=== PATIENT | male | born 1940 | race Asian ===

== ENCOUNTER → 2016-11-26 | Outpatient (CLI) | payer OTHER ==
[~2016-11-26] MED LIST: AMARYL4 MG PO; ASPIR 8181 MG PO; ATORVASTATIN CA40 MG PO; FLOMAX0.4 MG PO; HYDROCODONE-AP1 EAC6 PO; KEFLEX250 MG PO; METFORMIN HCL500 MG PO; NEURONTIN 300300 M1 PO; PERCOCET PO; PROSCAR 5MG TABL5 MG PO; ZANTAC 150MG T150 MG PO; ZESTRIL40 MG PO
== END ==
LOC: ULTRA 08:24
DX: N13.30 Unspecified hydronephrosis (principal); N28.89 Other specified disorders of kidney and ureter

== ENCOUNTER 2017-01-21 15:03 | Observation (INO) | payer OTHER ==
[~2017-01-21] VITALS: Ht 170.2 cm; Wt 82.1 kg
--- NOTE | ~2017-01-21 | H ---
[facility] [address] [address] HISTORY AND PHYSICAL Name: BRENDA ACEVEDO Room #: 307-[facility]..#: [id number] Admission: 01/21/17 Attend Phys: Mariano Allen MD Discharge: Date of : 38 Report #: [id number] THIS REPORT FOR: //name// CC: Nba Allen CHIEF COMPLAINT: Dizziness and hearing loss. HISTORY OF PRESENT ILLNESS: The patient is a 76-year-old gentleman who was in his usual state of health until on Saturday , he developed sudden loss of hearing in his left ear. He was [place] a local [place] when suddenly he heard a fuzzy noise and ringing in the left ear, which then followed with loss of hearing. Yesterday, then he developed dizziness with trouble walking and some nausea and presented to the emergency room. He said his hearing has still been severely diminished in his left ear since Saturday. PAST MEDICAL HISTORY: Hypertension, diabetes type 2, dyslipidemia, Owens's palsy, he had some illness in 2006, had a PEG tube at that time, which has been remotely removed. PAST SURGICAL HISTORY: He had a lap deonna in 2014. FAMILY HISTORY: Noncontributory. SOCIAL HISTORY: He is , lives with his . No chronic alcohol or tobacco use. ALLERGIES: None. MEDICATIONS: Flomax 0.4 mg, metformin ER 750 mg, Amaryl 4 mg, Zestril 40 mg, Lipitor 40 mg, gabapentin 300 mg b.i.d., Zantac 150 mg b.i.d., and aspirin 81 mg. REVIEW OF SYSTEMS: He still complains of poor balance, the ringing has diminished, he still complains of left-sided hearing loss, otherwise no headache, visual change, sore throat, chest pain, abdominal pain, nausea, vomiting, diarrhea, constipation, dysuria, or syncope. OBJECTIVE: VITAL SIGNS: Temperature 36.7, pulse 71, respirations 18, blood pressure 150/84, and O2 sat 94% on room air. GENERAL: He is awake and alert, in no distress. 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 LUNGS: Clear. HEART: Regular. ABDOMEN: Soft, normoactive bowel sounds. [address] [place] [address] HISTORY AND PHYSICAL Name: BRENDA ACEVEDO Room #: [facility]..#: [id number] Admission: 01/21/17 Attend Phys: Mariano Allen MD Discharge: Date of : 38 Report #: [id number] EXTREMITIES: No edema. NEUROLOGIC: Speech is fluent. He is alert and oriented. Global strength equal bilaterally. LAB REVIEW: Normal. Troponin negative. CT head negative. MRI of the brain is pending. ASSESSMENT: 1. 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 2. Hypertension. 3. Diabetes type 2. PLAN: Symptomatic treatment with meclizine for now. Once he is stable on his feet, he can go home and followup with ENT as an outpatient. I would avoid steroids at this point because of his diabetes. <ELECTRONICALLY SIGNED> By: Mariano Allen MD 01/22/17 1347 1058 1248 Mariano Allen MD /nt
--- NOTE | ~2017-01-21 | EKG ---
[address] [address] ELECTROCARDIOGRAM REPORT Name: BRENDA ACEVEDO Room #: 307-[facility].#: [id number] Admission: 01/21/17 Attend Phys: Mariano Allen MD Discharge: Date of : 38 Report #: [id number] THIS REPORT FOR: //name// [facility] ED Test Date: 2017-01-21 Test Time: 15:22:26 Pat Name: BRENDA ACEVEDO Department: Room: [facility] Gender: M Thoracic Medicine Physician: TAYA : 1940 Requested By: Janell Andrade Order Number: [id number] MD: Geovanny Kinney Measurements Intervals [place] Rate: 68 P: 40 [place]: 179 QRS: 22 QRSD: 129 T: 19 QT: 456 QTc: 486 Interpretive Statements Sinus rhythm Right bundle branch block Compared to ECG 11/25/2014 08:44:45 No significant changes Electronically Signed On 01-21-2017 18:07:45 CDT by Geovanny Kinney [email or web address] <ELECTRONICALLY SIGNED> By: Geovanny Kinney MD 01/21/17 1807 1522 21 Geovanny Kinney MD /BRADY
[2017-01-21 15:10] VITALS: BP 182/87
[2017-01-21] MEDS ORDERED: GLUCOPHAGE XR750 MG PO (15:24)
[2017-01-21] MEDS ORDERED: AMARYL4 MG PO (15:25)
[2017-01-21 15:30] LABS: HEMATOCRIT 48.6 % (42.0-52.0); HEMOGLOBIN 16.3 gm/dL (14.0-18.0); MCH 30.1 pg (26.0-34.0); MCHC 33.6 g/dL (28.0-37.0); MCV 89.7 fL (80.0-100.0); PLATELET COUNT 129 thou/uL (150-400); RBC 5.42 mil/uL (4.50-6.00); RDW 13.9 % (10.5-14.5); WBC 10.4 thou/uL (4.0-11.0)
[2017-01-21 15:31] LABS: MANUAL DIFF YES
[2017-01-21 15:39] LABS: ANION GAP 12 mmol/L (7-16); BUN 15 mg/dL (7-18); CALCIUM 8.7 mg/dL (8.5-10.1); CHLORIDE 103 mmol/L (98-107); CO2 23 mmol/L (21-32); CREATININE 0.9 mg/dL (0.7-1.3); GLUCOSE 269 mg/dL (74-106); POTASSIUM 4.1 mmol/L (3.5-5.1); SODIUM 138 mmol/L (136-145)
[2017-01-21 15:47] LABS: TROPONIN-I < 0.04 ng/mL (<0.04-0.07)
[2017-01-21 15:51] LABS: ABSOLUTE NEUTROPHILS 9.3 thou/uL (1.4-8.2); PLATELET ESTIMATE NORMAL; TOTAL CELL COUNT 100
[2017-01-21 17:33] VITALS: BP 142/69
[2017-01-21 19:19] VITALS: BP 136/77
[2017-01-21] MEDS ORDERED: FINASTERIDE5 MG PO (20:24)
[2017-01-21 23:58] VITALS: BP 147/88
[2017-01-22 03:08] LABS: HEMATOCRIT 47.4 % (42.0-52.0); HEMOGLOBIN 15.9 gm/dL (14.0-18.0); MCH 29.9 pg (26.0-34.0); MCHC 33.6 g/dL (28.0-37.0); MCV 88.9 fL (80.0-100.0); RBC 5.33 mil/uL (4.50-6.00); RDW 13.7 % (10.5-14.5); WBC 8.9 thou/uL (4.0-11.0)
[2017-01-22 03:20] LABS: CALCIUM 9.1 mg/dL (8.5-10.1); CREATININE 0.9 mg/dL (0.7-1.3); POTASSIUM 4.2 mmol/L (3.5-5.1)
[2017-01-22 04:07] VITALS: BP 136/78
[2017-01-22 07:07] VITALS: BP 150/84
[2017-01-22 16:47] VITALS: BP 156/82
[2017-01-22] MEDS ORDERED: ANTIVERT25 MG PO (17:11)
[2017-01-22 17:19] VITALS: BP 156/82
== END 2017-01-22 17:53 | disposition home or self-care (01) ==
LOC: ER 15:03 → EROBS 16:30 → 3N 17:30
PROVIDERS: Emergency Medicine
DX: R42 Dizziness and giddiness (principal); I10 Essential (primary) hypertension; E11.9 Type 2 diabetes mellitus without complications; R11.2 Nausea with vomiting, unspecified

== ENCOUNTER 2017-04-14 17:06 | Emergency (ER) | payer OTHER ==
[~2017-04-14] VITALS: Ht 170.2 cm; Wt 83.5 kg
--- NOTE | ~2017-04-14 | EKG ---
[place] [address] [facility] [place] [address] ELECTROCARDIOGRAM REPORT Name: BRENDA ACEVEDO Room #: [facility]#: [id number] Admission: 04/14/17 Attend Phys: Discharge: 04/14/17 Date of : 38 Report #: [id number] THIS REPORT FOR: //name// [facility] ED Test Date: 2017-04-14 Test Time: 17:55:14 Pat Name: BRENDA ACEVEDO Department: Room: Gender: Convention Planner: [facility] : 1940 Requested By: Rosas Cruz Order Number: [id number] MD: Hector Wright Measurements Intervals [place] Rate: 74 P: 30 [place]: 186 QRS: 10 QRSD: 131 T: 28 QT: 413 QTc: 459 Interpretive Statements Sinus rhythm Right bundle branch block Baseline wander in lead(s) V5 Compared to ECG 01/21/2017 15:22:26 No significant changes Electronically Signed On 04-15-2017 13:48:28 CDT by Hector Wright [email or web address] <ELECTRONICALLY SIGNED> By: Hector Wright MD, [facility] 04/15/17 1348 1755 175 Hector Wright MD, [facility] /EPI
[~2017-04-14 17:06] MED LIST changes: +ANTIVERT25 MG PO; +FINASTERIDE5 MG PO; +GLUCOPHAGE XR750 MG PO
[2017-04-14 18:18] LABS: HEMATOCRIT 45.5 % (42.0-52.0); MCH 29.6 pg (26.0-34.0); MCV 89.7 fL (80.0-100.0); PLATELET COUNT 160 thou/uL (150-400); RBC 5.07 mil/uL (4.50-6.00); RDW 14.3 % (10.5-14.5); WBC 4.7 thou/uL (4.0-11.0)
[2017-04-14 18:19] LABS: MANUAL DIFF YES
[2017-04-14 18:33] LABS: ANION GAP 7 mmol/L (7-16); BUN 17 mg/dL (7-18); CHLORIDE 104 mmol/L (98-107); CO2 26 mmol/L (21-32); GLUCOSE 362 mg/dL (74-106); POTASSIUM 4.2 mmol/L (3.5-5.1); SODIUM 137 mmol/L (136-145)
[2017-04-14 18:40] LABS: ALBUMIN 3.4 g/dL (3.4-5.0); ALKALINE PHOSPHATASE 135 U/L (46-116); DIRECT BILIRUBIN 0.1 mg/dL (<0.1-0.3); SGOT 22 U/L (15-37); SGPT 37 U/L (30-65); TOTAL BILIRUBIN 0.5 mg/dL (<0.1-1.0); TOTAL PROTEIN 6.4 g/dL (6.4-8.2); TROPONIN-I < 0.04 ng/mL (<0.04-0.07)
[2017-04-14 18:55] LABS: ABSOLUTE NEUTROPHILS 3.2 thou/uL (1.4-8.2); TOTAL CELL COUNT 100
[2017-04-14 19:05] LABS: APTT 25.5 Seconds (24.5-32.8); PROTIME 9.7 Seconds (9.3-11.4)
[2017-04-14] MEDS ORDERED: KEFLEX500 MG PO (21:29)
[2017-04-14] MEDS ORDERED: TRAMADOL 50 MG50 MG PO (21:29)
== END 2017-04-14 22:09 | disposition home or self-care (01) ==
LOC: ER 17:06
PROVIDERS: Emergency Medicine
DX: I83.228 Varicose veins of left lower extremity with both ulcer of other part of lower extremity and inflammation (principal); L03.116 Cellulitis of left lower limb; R79.1 Abnormal coagulation profile; E11.9 Type 2 diabetes mellitus without complications; I10 Essential (primary) hypertension; E78.00 Pure hypercholesterolemia, unspecified; G51.0 Bell's palsy; K21.9 Gastro-esophageal reflux disease without esophagitis; Z98.890 Other specified postprocedural states

== ENCOUNTER → 2017-04-18 | Outpatient (CLI) | payer OTHER ==
[~2017-04-18] MED LIST changes: +KEFLEX500 MG PO; +TRAMADOL 50 MG50 MG PO
== END ==
LOC: ULTRA 08:48
DX: N28.1 Cyst of kidney, acquired (principal); K76.0 Fatty (change of) liver, not elsewhere classified; K74.60 Unspecified cirrhosis of liver

== ENCOUNTER 2018-02-13 19:34 | Emergency (ER) | payer OTHER ==
[~2018-02-13] VITALS: Ht 170.2 cm; Wt 81.7 kg
--- NOTE | ~2018-02-13 | EKG ---
[place] [address] [facility] [employer] [place] [address] ELECTROCARDIOGRAM REPORT Name: BRENDA ACEVEDO [id number] Admission: 02/13/18 Attend Phys: Discharge: 02/13/18 Date of : 38 Report #: [id number] THIS REPORT FOR: //name// [facility] ED Test Date: 2018-02-13 Test Time: 19:29:28 Pat Name: BRENDA ACEVEDO Department: Room: Gender: Transportation Agent: JESUS MANUEL : 1940 Requested By: Janell Andrade Order Number: [id number] MD: Hector Wright Measurements Intervals [place] Rate: 60 P: 43 [place]: 184 QRS: 33 QRSD: 132 T: 31 QT: 447 QTc: 447 Interpretive Statements Sinus arrhythmia Occasional premature ventricular complexes Right bundle branch block Compared to ECG 04/14/2017 17:55:14 PVCs are now present Electronically Signed On 02-14-2018 8:12:58 CDT by Hector Wright [email or web address] <ELECTRONICALLY SIGNED> By: Hector Wright MD, [facility] 02/14/18811 192 28 Hector Wright MD, [facility] /EPI
[2018-02-13 19:52] LABS: ABSOLUTE NEUTROPHILS 6.1 thou/uL (1.4-8.2); BASOPHILS 0.4 % (0.0-2.0); EOSINOPHILS 0.9 % (0.0-3.0); HEMATOCRIT 48.5 % (42.0-52.0); HEMOGLOBIN 16.9 gm/dL (14.0-18.0); LYMPHOCYTES 22.4 % (24.0-44.0); MCH 30.4 pg (26.0-34.0); MCHC 34.9 g/dL (28.0-37.0); MCV 87.3 fL (80.0-100.0); MONOCYTES 8.4 % (1.0-8.0); PLATELET COUNT 154 thou/uL (150-400); POLYS 67.9 % (36.0-66.0); RBC 5.55 mil/uL (4.50-6.00); RDW 13.5 % (10.5-14.5)
[2018-02-13 19:59] LABS: CALCIUM 8.3 mg/dL (8.5-10.1); CREATININE 1.1 mg/dL (0.7-1.3); POTASSIUM 3.7 mmol/L (3.5-5.1)
[2018-02-13 20:08] LABS: BE(vivo) -2.8 mmol/L (-2 to +3); HCO3 22.1 mmol/L (22.0-26.0); PCO2 39.3 mmHg (35.0-45.0); PO2 94.1 mmHg (80.0-100.0); pH 7.368 (7.360-7.450)
[2018-02-13 21:13] LABS: URINE BILIRUBIN NEGATIVE (Negative); URINE BLOOD TRACE (Negative); URINE CLARITY CLEAR; URINE COLOR YELLOW; URINE GLUCOSE-RANDOM* 3+ (Negative); URINE KETONES NEGATIVE (Negative); URINE LEUKOCYTES NEGATIVE (Negative); URINE NITRITE NEGATIVE (Negative); URINE PROTEIN (DIPSTICK) 1+ (Negative); URINE UROBILINOGEN 0.2 E.U./dl (0.2-1.0)
[2018-02-13 21:20] LABS: AMP/METHAMP Negative (Negative); BARBITURATES Negative (Negative); BENZODIAZEPINES Negative (Negative); COCAINE Negative (Negative); METHADONE Negative (Negative); OPIATES POSITIVE (Negative); PCP Negative (Negative)
[2018-02-13 21:22] LABS: CASTS None Seen /LPF (None Seen); CRYSTALS None Seen /LPF (None Seen); SQUAMOUS None Seen /LPF (0-3); URINE RBC 0-2 Rare /HPF (0-2); URINE WBC None Seen /HPF (0-5)
[2018-02-13 21:23] LABS: BACTERIA 1-9 Few /HPF (None Seen)
[2018-02-13 21:29] LABS: APTT 23.3 Seconds (24.5-32.8)
== END 2018-02-13 22:30 | disposition short-term general hospital (02) ==
LOC: ER 19:34
PROVIDERS: Emergency Medicine
DX: I61.8 Other nontraumatic intracerebral hemorrhage (principal); E11.9 Type 2 diabetes mellitus without complications; I10 Essential (primary) hypertension; E78.00 Pure hypercholesterolemia, unspecified; K21.9 Gastro-esophageal reflux disease without esophagitis; Z90.49 Acquired absence of other specified parts of digestive tract